=== PATIENT | male | born 1960 | race Caucasian/White ===

== ENCOUNTER → 2021-12-05 | Emergency (ER) | payer OTHER ==
[~2021-12-05] VITALS: Ht 160 cm; Wt 74.8 kg
[~2021-12-05] MED LIST: CARI350T PO; HYDR-4303 PO; KETOROLAC TROMETHAMINE INJ 30 MG/ML VIAL IM ONE; KETOROLAC TROMETHAMINE INJ 30 MG/ML VIAL ONE
--- NOTE | 2021-12-05 18:44 | NUR ---
DR SHEN AT BEDSIDE FOR EVAL
--- NOTE | 2021-12-05 19:23 | NUR ---
TORADOL IM GIVEN INDICATED.
--- NOTE | 2021-12-05 20:22 | NUR ---
PT LEFT IN STABLE CONDITION. AMBULATED TO THE WAITING ROOM.
[2021-12-05 20:23] VITALS: BP 142/79
== END | disposition home or self-care (01) ==
LOC: ER 18:29
DX: M48.061 Spinal stenosis, lumbar region without neurogenic claudication (principal); Z79.899 Other long term (current) drug therapy
CPT/HCPCS: 99284; 72131; 96372; 72170; J1885